=== PATIENT | female | born 1975 | race Caucasian/White ===

== ENCOUNTER 2017-11-03 10:41 | Emergency (ER) | payer OTHER ==
[~2017-11-03] VITALS: Ht 170.2 cm; Wt 74.3 kg
[~2017-11-03 10:41] MED LIST: CYMBALTA60 MG PO; Motrin PO; PROzac PO; Percocet 5/325,Endoc PO
[2017-11-03 11:58] LABS: HEMATOCRIT 40.2 % (36.0-46.0); HEMOGLOBIN 13.7 G/DL (11.9-15.5); MCH 30.4 PG (29.0-34.0); MCHC 34.1 G/DL (30.0-36.0); MCV 89.1 FL (83-99); PLATELET COUNT 270 K/uL (156-360); RBC DIS.WIDTH-CV 12.2 % (11.8-14.6); RBC DIS.WIDTH-SD 39.8 % (39-53); RED BLOOD COUNT 4.51 M/uL (3.80-5.20); WHITE BLOOD COUNT 10.1 K/uL (4.1-10.2)
[2017-11-03 12:03] LABS: APPEARANCE CLEAR ((CLEAR)); BILIRUBIN NEGATIVE; BLOOD SMALL; COLOR STRAW ((YELLOW)); GLUCOSE (STRIP) NEGATIVE; KETONES NEGATIVE; LEUKOCYTES SMALL; NITRITE NEGATIVE; PROTEIN (STRIP) NEGATIVE; SPECIFIC GRAVITY 1.009 (1.000-1.030); UROBILINOGEN 0.2 MG/DL (0.2-1.0)
[2017-11-03 12:17] LABS: BACTERIA RARE /HPF; EPITHELIAL CELLS RARE /HPF; MUCUS TRACE /LPF; RED BLOOD CELLS 0-5 /HPF (0-5); UCUL ADDED? NO; WHITE BLOOD CELLS 0-5 /HPF (0-5)
[2017-11-03 12:35] LABS: ALBUMIN 4.2 G/DL (3.2-4.8); ALKALINE PHOSPHATASE 52 IU/L (3-129); ALT (GPT) 11 IU/L (3-49); AST (GOT) 13 IU/L (2-34); CHLORIDE 106 MEQ/L (99-109); CREATININE 0.8 MG/DL (0.6-1.3); GFR ESTIMATE (CALCULATED) > 59 mL/min/; GLUCOSE 105 mg/dL (70-99); POTASSIUM 3.6 MEQ/L (3.7-5.4); SODIUM 139 MEQ/L (136-147); TOTAL BILIRUBIN 0.3 MG/DL (0.0-1.0); TOTAL PROTEIN 6.9 G/DL (6.4-8.3); UREA NITROGEN (BUN) 11 mg/dL (9-23)
[2017-11-03] MEDS ORDERED: REGLAN10 MG PO (12:40)
[2017-11-03] MEDS ORDERED: MOTRIN600 MG PO (12:46)
[2017-11-03 12:57] VITALS: BP 133/84
[2017-11-03 13:02] LABS: QUANTITATIVE HCG < 4.0 MIU/ML
== END 2017-11-03 12:58 | disposition home or self-care (01) ==
LOC: EME 10:41
PROVIDERS: Nurse Practitioner Family
DX: R51 Headache (principal); R11.0 Nausea; Z88.5 Allergy status to narcotic agent
CPT/HCPCS: 80053; 81003; 84702; 85027; 99281; 99284; J1885; J2765